=== PATIENT | female | born 1990 | race African-American/Black ===

== ENCOUNTER 2021-09-06 14:37 | Emergency (ER) | payer OTHER ==
[~2021-09-06] VITALS: Ht 170.2 cm; Wt 89.8 kg
== END 2021-09-06 20:33 | disposition home or self-care (01) ==
LOC: ER 14:37
DX: O26.891 Other specified pregnancy related conditions, first trimester (principal); R10.32 Left lower quadrant pain; O34.81 Maternal care for other abnormalities of pelvic organs, first trimester; N83.292 Other ovarian cyst, left side; Z3A.01 Less than 8 weeks gestation of pregnancy

== ENCOUNTER 2021-10-06 11:30 | Emergency (ER) | payer OTHER ==
[~2021-10-06] VITALS: Ht 170.2 cm; Wt 87.5 kg
== END 2021-10-06 15:48 | disposition home or self-care (01) ==
LOC: ER 11:30
DX: O26.851 Spotting complicating pregnancy, first trimester (principal); O26.891 Other specified pregnancy related conditions, first trimester; R10.2 Pelvic and perineal pain; O36.80X1 Pregnancy with inconclusive fetal viability, fetus 1; Z3A.11 11 weeks gestation of pregnancy

== ENCOUNTER 2021-12-05 11:00 | Outpatient (CLI) | payer OTHER | END 2021-12-05 12:11 | disposition home or self-care (01) | LOC: PRENATAL 11:00 | PROVIDERS: ATTEND Obstetrics & Gynecology Maternal & Fetal Medicine | DX: O35.0XX0 Maternal care for (suspected) central nervous system malformation in fetus, not applicable or unspecified (principal); O35.3XX0 Maternal care for (suspected) damage to fetus from viral disease in mother, not applicable or unspecified; O44.00 Complete placenta previa NOS or without hemorrhage, unspecified trimester ==

== ENCOUNTER 2022-03-01 11:16 | Outpatient (CLI) | payer OTHER | END 2022-03-01 12:05 | disposition home or self-care (01) | LOC: PRENATAL 11:16 | PROVIDERS: ATTEND Obstetrics & Gynecology Maternal & Fetal Medicine | DX: O26.849 Uterine size-date discrepancy, unspecified trimester (principal); O35.0XX0 Maternal care for (suspected) central nervous system malformation in fetus, not applicable or unspecified; O43.90 Unspecified placental disorder, unspecified trimester; Z3A.32 32 weeks gestation of pregnancy; Z88.5 Allergy status to narcotic agent; Z91.013 Allergy to seafood ==